=== PATIENT | male | born 1965 | race American Indian/Alaskan Native ===

== ENCOUNTER 2019-12-18 22:36 | Emergency (ER) | payer SELFPAY ==
[~2019-12-18 22:36] MED LIST: CALCIUM CHLORIDE 1,000 MG/10 ML SYRINGE IV ONE; EPINEPHrine 1:10,000 1 MG/10 ML SYRINGE ONE
--- NOTE | 2019-12-18 22:47 | Emergency Department Report ---
HPI - General Time Seen by Provider: 12/18/19 22:45 - HPI HPI: This patient is a -[place] male who appears to be in his 50s who presents to the emergency department by EMS as a cardiac arrest. The patient apparently was found in his car at work at [employer] unresponsive. EMS found the patient to have critical high blood sugar. The patient has been in asystole since 2206. Currently we do not have this patient's name or any information about comorbidities but he does present morbidly obese. The patient received 1 round of epinephrine through an intraosseous line and was intubated, by EMS, prior to arrival. ED Review of Systems ROS: Stated complaint: CARDIAC ARREST Other details as noted in HPI Comment: Unobtainable due to pts medical conditions Physical Exam - Physical Exam Physical Exam: GENERAL: Patient is ill-appearing and unresponsive. HENT: Normocephalic. Atraumatic. Endotracheal tube in place. EYES: Pupils are fixed and dilated. NECK: Supple. Trachea appears midline. CHEST/LUNGS: There are no spontaneous respirations. HEART/CARDIOVASCULAR: There are no spontaneous heart sounds. ABDOMEN: Abdomen is soft. Morbidly obese habitus. SKIN: Skin is cool but dry. NEURO: Unresponsive. Does not withdraw to painful stimuli. Does not follow any commands. MUSCULOSKELETAL: There is no obvious deformity. No palpable femoral or radial pulses. ED Medical Decision Making - Medical Decision Making This patient presents to the emergency department in cardiac arrest. By the time he arrived to the ED the patient had been asystolic and pulseless for greater than 30 minutes. EMS found the patient to have a blood sugar greater than 500 but he was pulseless and unresponsive so ACLS protocol was started. They were able to intubate the patient and provide bag valve ventilation. The patient received chest compressions. He also received 1 round of epinephrine through an intraosseous line. He arrived to the emergency department still pulseless and in asystole. We continued ACLS protocol. Patient received another round of epinephrine. He was given bicarb and a dose of calcium. We did a second round of ACLS protocol with another dose of epinephrine. After this, the patient was still asystolic and pulseless. Overall it has been close to 40 to 45 minutes that the patient has been pulseless and in asystole. Pupils are fixed and dilated. No spontaneous breath sounds or heart sounds. No palpable pulse. Time of was called. - Differential Diagnosis DKA, PE, CVA, IL Critical Care Time: Yes Critical care time in (mins) excluding proc time.: 10 Critical care attestation.: If time is entered above; I have spent that time in minutes in the direct care of this critically ill patient, excluding procedure time. Critical care time was spent on this patient in doing his initial evaluation and supervision of ACLS protocol. Critical Care Time: 10 minutes ED Disposition Clinical Impression: Cardiac arrest Acute respiratory failure Qualifiers: Respiratory failure complication: unspecified whether with hypoxia or hype rcapnia Qualified Code(s): J96.00 - Acute respiratory failure, unspecified whether with hypoxia or hypercapnia Disposition: DC-20 Is pt being admited?: No Time of Disposition: 23:30
== END 2019-12-19 02:29 ==
LOC: ED 22:36
DX: I46.9 Cardiac arrest, cause unspecified (principal)
CPT/HCPCS: 82962; 92950; 99285; J0171